=== PATIENT | female | born 1960 | race Caucasian/White ===

== ENCOUNTER → 2017-01-25 | Outpatient (CLI) | payer BC ==
[~2017-01-25] MED LIST: ACYCLOVIR PO; ACYCLOVIR200 MG PO; ADVIL200 M1 PO; ALBUTEROL17 GM INH; ALEVE220 M1 PO; ANTIVERT; BIOFREEZE118 ML TOP; CELEBREX PO; GAVISCON1 TAB PO; LEVAQUIN PO; LEVOCETIRIZINE D5 MG PO; MEDROL PO; MONTELUKAST SOD10 MG PO; MUCINEX DM1 TAB.SR . PO; NAPROXEN PO; NORVASC PO; PERCOCET5/325 PO; PREDNISONE; PRILOSEC PO; PRILOSEC20 MG PO; PROTONIX PO; PROZAC PO; SYMBICORT INH; TOPAMAX50 MG PO; TOPIRAGEN50 MG PO; TRAMADOL HCL50 M1 PO; TRILEPTAL PO; VITAMIN D250000 UNIT PO; VOLTAREN75 MG PO; XARELTO10 MG PO; ZITHROMAX; ZOVIRAX200 MG PO
--- NOTE | ~2017-01-25 | MY11 ---
[facility] A Service of [facility] RADIOLOGY TEXT RESULTS PATIENT: KALPESH GALLAGHER LOCATION: [facility] : 56 UNIT #: [id number] AGE: [address]: Tariq Dodd MD SEX: F ORDER DR: [id number] [facility] [address] [place], [place] [address] [id number] O MR#: [id number] Acc #: [id number] NAME: KALPESH GALLAGHER : 1960 SEX: F STUDY DATE/TIME: 01/25/2017 12:14 UNIT: [facility] ROOM: STUDY DESCRIPTION: MY Mammogram Screening Dig Dominic Attending Physician: Tariq Dodd M.D. Ordering Physician: Tariq Dodd M.D. Primary Care Physician: Tariq Dodd M.D. MEDICAL IMAGING REPORT This report is preliminary unless electronic signature is present EXAM Bilateral digital screening mammogram with CAD 01/25/2017 INDICATIONS 56-year-old female for routine screening. No reported problems no personal or family history of breast cancer. No surgeries. TECHNIQUE CC and MLO views of the breast were obtained and reviewed with an FDA-approved CAD device. COMPARISON Studies 06/24/2015 09/18/2011 08/30/2011 12/28/2006 breast parenchyma is heterogeneously dense. The pattern is unchanged. There is no new dominant nodule mass or suspicious clustered microcalcifications. There are benign calcifications bilaterally some of which demonstrate benign interval progression. Benign-appearing nodularity in the left breast is stable for technical factors. IMPRESSION 1. Benign screening mammogram one year follow-up recommended. Patients over the age of 40 are entered into a reminder system with target due date for the next mammogram. A result letter will also be sent to the patient. BIRADS: 2, benign findings. Dictated by... Thomas Gonzalez M.D. THIS IS AN ELECTRONICALLY VERIFIED REPORT [facility] A Service [facility] RADIOLOGY TEXT RESULTS PATIENT: KALPESH GALLAGHER LOCATION: [facility] : 56 UNIT #: [id number] AGE: [address]: Tariq Dodd MD SEX: F ORDER DR: Thomas Gonzalez M.D. at 01/25/2017 5:13 PM KEMI/shilpa TD: 01/25/2017 14:17 JOB #: [id number] MEDICAL IMAGING REPORT Page 1 of 1 COPY
== END | disposition home or self-care (01) ==
LOC: CWCC 11:32
DX: Z12.31 Encounter for screening mammogram for malignant neoplasm of breast (principal)
CPT/HCPCS: G0202